=== PATIENT | male | born 1945 | race Caucasian/White ===

== ENCOUNTER 2016-06-21 11:35 | Emergency (ER) | payer MEDICARE, OTHER | END 2016-06-21 15:44 | disposition home or self-care (01) | LOC: ER 11:35 → EDBD 11:35 → ER 15:44 | DX: J44.1 Chronic obstructive pulmonary disease with (acute) exacerbation (principal); J18.9 Pneumonia, unspecified organism; I25.2 Old myocardial infarction; I11.0 Hypertensive heart disease with heart failure; I50.9 Heart failure, unspecified; Z95.1 Presence of aortocoronary bypass graft; Z79.02 Long term (current) use of antithrombotics/antiplatelets; Z79.82 Long term (current) use of aspirin; Z79.84 Long term (current) use of oral hypoglycemic drugs; Z79.899 Other long term (current) drug therapy; Z87.891 Personal history of nicotine dependence | CPT/HCPCS: 36415; 96365; 96375; J0696 ==

== ENCOUNTER 2016-07-01 10:43 | Emergency (ER) | payer MEDICARE, OTHER | END 2016-07-01 11:10 | disposition short-term general hospital (02) | LOC: EDBD 10:43 → ER 10:43 | DX: I21.3 ST elevation (STEMI) myocardial infarction of unspecified site (principal); I11.0 Hypertensive heart disease with heart failure; I50.9 Heart failure, unspecified; E11.9 Type 2 diabetes mellitus without complications; I25.2 Old myocardial infarction; E78.00 Pure hypercholesterolemia, unspecified; Z95.0 Presence of cardiac pacemaker; Z98.61 Coronary angioplasty status; Z90.49 Acquired absence of other specified parts of digestive tract; Z79.82 Long term (current) use of aspirin; Z79.899 Other long term (current) drug therapy | CPT/HCPCS: 36415; 96374; J1644 ==

== ENCOUNTER 2016-07-14 19:43 | Observation (INO) | payer MEDICARE, OTHER ==
[~2016-07-14] VITALS: Ht 157.5 cm; Wt 93.0 kg
--- NOTE | 2016-07-15 01:30 | NUR ---
07/14/16 2335- PT ADMITTED TO [facility] FROM ER VIA [facility]. PT IS ALERT AND ORIENTED X3. VS ARE STABLE. NO SIGNS OR SYMPTOMS OF DISTRESS NOTED. PT ORIENTED TO ROOM AND ROOM SAFETY FEATURES.
== END 2016-07-17 17:40 | disposition home or self-care (01) ==
LOC: ER 19:43 → MED 22:59 → EDBD 22:59 → MED 07-17 17:40 → EDBD 07-17 17:40 → MED 07-17 17:40
PROVIDERS: ADMIT Internal Medicine
DX: R07.89 Other chest pain (principal); I95.2 Hypotension due to drugs; I48.91 Unspecified atrial fibrillation; E78.5 Hyperlipidemia, unspecified; I10 Essential (primary) hypertension; E11.9 Type 2 diabetes mellitus without complications; I25.10 Atherosclerotic heart disease of native coronary artery without angina pectoris; J44.9 Chronic obstructive pulmonary disease, unspecified; Z79.02 Long term (current) use of antithrombotics/antiplatelets; Z79.82 Long term (current) use of aspirin; Z79.899 Other long term (current) drug therapy; Z95.1 Presence of aortocoronary bypass graft; Z98.61 Coronary angioplasty status; Z90.49 Acquired absence of other specified parts of digestive tract; Z87.891 Personal history of nicotine dependence
CPT/HCPCS: 36415; 96361; 96372; 96374; 96376; A9540; A9567; G0378; J1650